=== PATIENT | male | born 1980 | race Two or more races ===

== ENCOUNTER → 2019-04-11 | Outpatient (CLI) | payer OTHER ==
--- NOTE | 2019-04-11 17:46 | RAD ---
CT CHEST WO CONTRAST Indication: Pulmonary nodule. Exposure: One or more of the following individualized dose reduction techniques were utilized for this examination: 1. Automated exposure control 2. Adjustment of the mA and/or kV according to patient size 3. Use of iterative reconstruction technique. Technique: Standard imaging without intravenous contrast. Comparison: None are available FINDINGS: No evidence of aortic aneurysm. Vascular exam otherwise limited without intravenous contrast. Visualized thyroid appears symmetric. No significant axillary or mediastinal lymph node enlargement. Right hilar granulomatous type calcifications are noted. No significant pericardial effusion. No evidence of pleural effusion. No significant esophageal distention. Lungs appear clear without infiltrate or dominant mass. Densely calcified 8 mm right lower lobe nodule compatible with a granuloma. Trachea and mainstem bronchi are patent. No evidence of pneumothorax. Vertebral body height and alignment intact. No aggressive bone destruction. Scans through the upper abdomen are limited by technique. Splenic calcifications compatible with granulomas. No definite acute findings. IMPRESSION: 1. Densely calcified 8 mm right lower lobe granuloma. 2. No concerning noncalcified pulmonary nodule or acute abnormality. Electronically signed by: Jorge Romo MD (04/11/2019 5:43 PM) [facility]
== END | disposition home or self-care (01) ==
LOC: CT 11:00
PROVIDERS: ATTEND Preventive Medicine Occupational Medicine
DX: J84.10 Pulmonary fibrosis, unspecified (principal); J98.4 Other disorders of lung
CPT/HCPCS: 71250